=== PATIENT | female | born 1990 | race Caucasian/White ===

== ENCOUNTER 2016-04-23 16:58 | Outpatient (CLI) | payer OTHER ==
[~2016-04-23] VITALS: Ht 160 cm; Wt 97.0 kg
[2016-04-23 17:22] VITALS: Ht 160 cm; Wt 97.0 kg
[2016-04-23] MEDS ORDERED: PRENAT PO (17:22)
--- NOTE | 2016-04-23 18:20 | RADRPT ---
PROCEDURE: US OB biophysical profile. CLINICAL INDICATION: decreased movements, labor TECHNIQUE: Multiple sonographic images of the pelvis were obtained. The images were reviewed on a PACS workstation. COMPARISON: No prior studies are available for comparison. FINDINGS: There is a single viable intrauterine gestation. Cardiac activity is present with 131 beats per min [place]. There is a vertex presentation. The placenta is anterior. There is no evidence of placental abruption. There is a normal amount of amniotic fluid with an ESMER = 10.3 cm. Biophysical profile: movement 2/2 tone 2/2. breathing 2/2 ESMER 2/2 Total 09/22 RPTAT: AA . IMPRESSION: Normal biophysical profile. . .Ralph Murillo MD, Date Time Electronically viewed and signed by .Ralph Murillo MD, MD on 04/23/2016 18:19 .S/
--- NOTE | 2016-04-23 20:04 | TRIAGE ---
OB Triage Datetime Report Generated by CPN: 04/23/2016 20:04 Datetime: 04/23/2016 19:19 Pain Assessment Pain Scale: 0 Pain Presence: None/Denies Pain Type: N/A Pain Goal: 3 Datetime: 04/23/2016 19:17 Vaginal Exam Dilatation (cms): 2.5 Effacement (%): 70 Station: -3 Exam By: SHANNAN T. RN Membrane Status: Intact Cervix, Consistency: Soft Cervix, Position: Posterior Datetime: 04/23/2016 17:45 Stage of : OB Triage Datetime: 04/23/2016 17:13 Stage of : OB Triage Assessment Type: Triage EGA: 35.6 Maternal Assessment Level of Consciousness: Fully Conscious DTR's/Clonus: DTRs 2+; No Clonus Headache: Denies Blurred Vision: No Respiratory Effort: Unlabored; Regular Rhythm; Equal Expansion Breath Sounds, Left: Clear and Equal Breath Sounds, Right: Clear and Equal Nausea/Vomiting: Denies RUQ Epigastric Pain: Denies Lower Extremities Edema: None Degree: None Upper Extremities Edema: None Degree: None Facial Edema: None Temperature Route: Axillary Fall Risk Assessment History of Falling: (0) No Secondary Diagnosis: (0) No Ambulatory Aid: (0) Bedrest/Nurse Assist IV Therapy: (0) No Gait: (0) Normal/Bedrest/Immobile Mental Status: (0) Oriented to Own Ability Fall Score: 0 Fall Risk Score Definition: No Risk: No action required Labor Evaluation Frequency: 0 Monitor Mode: External Pattern: Normal: <= 5 Contractions in 10 Minutes Resting Tone [place]: Relaxed Heart Rate FHR Baseline Rate: 145 Monitor Mode: External US Variability: Moderate 6-25 bpm Accelerations: None Decelerations: None Category: Category II Pain Assessment Pain Scale: 3 Pain Presence: Intermittent Pain Type: Cramping Pain Location: Abdomen Pain Goal: 3 Pain Relief Measures: Comfort Measures Datetime: 04/23/2016 17:11 Time of Arrival: 04/23/2016 17:00 Arrived By: Ambulatory Arrived From: Home Chief Complaint: C/O UC'S AND VAGINAL PRESSURE, DENIES BLEEDING OR LEAKING OF FLUID Movement: Present Contractions: Irregular Rupture of Membranes: Denies Vaginal Bleeding: None Vaginal Discharge: Present Recent Sexual Intercouse: Denies Abdominal Trauma: Not Applicable Patient Complaints: Cramping Time Provider Notified: 04/23/2016 17:45 Provider Notified: BETSY Initial Plan: MONITOR
--- NOTE | 2016-04-23 20:10 | PN ---
Date/Time of Note Date/Time of Note DATE: 04/23/16 TIME: 20:05 OB Subjective Subjective Subjective 26 yo P2 @ 35+ wks presents to r/o labor; ctx now spaced out good FM, no VB, no LOF OB Objective Objective Objective Nml VS Abdomen- gravid, n/t SVE- 2-3/70/-3 FHT- Cat I [place]- irreg ctx Abdomen: WNL Cervical Dilatation: 2cm Effacement: 75% Station: -3 Membranes: Intact Accelerations: Accelerations Present Decelerations: No Decelerations Varibility: Moderate Contractions on Admission: 6-10 Minutes Apart Intensity: Mild OB Assessment/Plan Other Assessment: 26 yo P2 @ 35+ wks, r/o labor - not in labor - reassuring status Other plan: d/c home w labor precautions PATRIC ALCALA MD Apr 23, 2016 20:10
[2016-04-23 22:48] LABS: ADD UMIC NO; URINE BILIRUBIN (Dip) NEGATIVE (NEGATIVE); URINE BLOOD (Dip) NEGATIVE (NEGATIVE); URINE COLOR YELLOW (YELLOW); URINE GLUCOSE (Dip) NEGATIVE (NEGATIVE); URINE KETONES (Dip) 15 (NEGATIVE); URINE LEUKOCYTE ESTERASE (Dip) NEGATIVE (NEGATIVE); URINE NITRITE (Dip) NEGATIVE (NEGATIVE); URINE TOTAL PROTEIN (Dip) NEGATIVE (NEGATIVE); URINE UROBILINOGEN (Dip) 0.2 E.U./dL (0.1-1.0)
== END 2016-04-23 20:05 | disposition home or self-care (01) ==
LOC: OBT 16:58 → L-D 16:59 → OBT 20:05
PROVIDERS: ATTEND Obstetrics & Gynecology
DX: O62.9 Abnormality of forces of labor, unspecified (principal); O36.8130 Decreased fetal movements, third trimester, not applicable or unspecified; O60.03 Preterm labor without delivery, third trimester; Z3A.35 35 weeks gestation of pregnancy
CPT/HCPCS: 76818; 81003; Z7500; G0463